=== PATIENT | male | born 1950 | race Caucasian/White ===

== ENCOUNTER 2020-03-03 09:29 | Day surgery (SDC) | payer MEDICARE, SELFPAY ==
[2020-03-03 09:35] VITALS: BP 138/88; PULSE 57; RESP 16; TEMP 36.2; O2SAT 99
[2020-03-03] MEDS: Tropicam./Phenyleph. (1/2.5%) 5 ML BTL OD ×2 (09:56→09:59)
[2020-03-03] MEDS: Tetracaine 0.5% 4 ML BTL OD (10:50)
[2020-03-03] MEDS: Balanced Salt Soln.-PLUS 500 ML BAG (10:51)
[2020-03-03] MEDS: Lidocaine 1% Pres-Free 5 ML VIAL (10:52)
[2020-03-03] MEDS: Lidocaine 2% Jelly 6 ML SYR (10:52)
[2020-03-03] MEDS: Moxifloxacin-PF 1 MG/ML VIAL (10:53)
[2020-03-03] MEDS: Povidone-Iodine Ophth 30 ML BTL (10:54)
--- NOTE | 2020-03-03 11:18 | W.PM.DSUDISC ---
Discharge Plan Disposition Patient Disposition: HOME Condition: Good Discharge Details Attending Provider: Wil Olivas Primary Care Provider: Ursula Santos Home Meds and New Rx's Prescriptions: No Action cetirizine 10 mg Tablet 10 mg PO DAILY PRNRF: 0 Discharge Instructions Stand Alone Forms: Post-op Topical Cataract, Hoda Cain (DSU) Discharge Orders Discharge Orders: Discharge Order (Routine); Ordered 03/03/20 Ordered By: Wil Olivas DS: Diagnosis Discharge Diagnosis (1) Nuclear sclerotic cataract of right eye: Status: Resolved (2) Cortical cataract of right eye: Status: Resolved
--- NOTE | 2020-03-03 11:19 | ROE_ITS ---
Date of service: 03/03/20 Time of Service: 11:19 Operative Note Operative Note DATE OF PROCEDURE: 03/03/20 PRE-OP DIAGNOSIS: Nuclear/cortical cataract, right eye Myopia POST-OP DIAGNOSIS: same PROCEDURE: Cataract extraction using phacoemulsification with intraocular lens implant, right eye SURGEON: Wil Olivas ANESTHESIA: MAC and local (sub-tenon's anesthetic infiltration) ESTIMATED BLOOD LOSS: 0 PATHOLOGY: none sent COMPLICATIONS: None Patient was transported to: same day Patient's condition: stable Implants: [employer] / [employer] Tecnis ZCB00 intraocular lens Indications: Progressive decreased vision due to cataract, right eye Procedure Description: CATARACT SURGERY OPERATIVE REPORT PREOPERATIVE DIAGNOSIS: Nuclear/cortical cataract, right eye Myopia, right eye with desire to remain myopic, -2.50 diopters target POSTOPERATIVE DIAGNOSIS: Same OPERATION: Cataract extraction using phacoemulsification with posterior chamber intraocular lens implant, right eye. IOL: IOL Sole Scraper/Model: [employer] / PACHECO Tecnis ZCB00 IOL Power: + 13.50 diopters IOL Serial Number: [id number] Optic Diameter: 6.0mm Haptic/Overall Diameter: 13.0mm PHACO INFO: Rob [employer] Vision System with OZil and Active [employer]uidics Cumulative Dispersed Energy (CDE): 15.01 seconds SURGEON: Wil Olivas MD, PETER ANESTHESIA: Monitored Anesthesia Care (MAC), with local sub-tenon's anesthetic infiltration COMPLICATIONS: None SPECIMENS: None INDICATIONS FOR PROCEDURE: The patient is a 70-year-old gentleman with history of myopia. He has developed a significant nuclear cortical cataract in only the right eye. The option of cataract surgery was offered to the patient and he wished to proceed. He desires to remain myopic in the right eye so as to avoid anisometropia. The left eye has only an early cataract. PROCEDURE: The correct surgical eye was identified and marked as the right eye and the pupil was dilated in the preoperative area using mydriatics and cycloplegics. The dilated pupil size was 8.0 mm. Oral sedation was administered in the form of an Imprimis MKO Melt (midazolam 3mg/ketamine 25mg/ondansetron 2mg). The patient was brought to the operating room where cardiopulmonary mo nitoring was instituted and surgical time-out was performed, confirming the correct operative eye and IOL power. Topical anesthesia was administered and ophthalmic povidone-iodine 5% was instilled into the conjunctival fornices. Lidocaine gel was applied to the cornea and the roselia-ocular area was prepped with Betadine 10% solution and draped in the usual sterile fashion for intraocular surgery, including an aperture drape. A Tegaderm transparent film dressing was cut in half and used to cover the lashes and lid margins. Care was taken to sequester the lashes and lid margins under the Tegaderm dressing. A lid speculum was placed between the lids of the operative eye and the [facility] operating microscope was maneuvered into position. Linn scissors were then used to make a conjunctival buttonhole approximately 6mm posterior to the limbus in the inferonasal quadrant. Blunt dissection was carried out to expose bare sclera, and a blunt-tipped sub-tenon?s anesthesia cannula was introduced and passed posteriorly along the globe where non- preserved plain lidocaine was injected into posterior sub-Tenon?s space. A sideport knife was used to make a paracentesis port inferiortemporally. Intraocular phenylephrine/lidocaine was injected into the anterior chamber. The anterior chamber was then filled with Healon Pro. A 2.4mm keratome knife was used to create a half-thickness groove at the limbus and then to construct a three-plane near-clear corneal tunnel extending 2.0mm into clear cornea in the superiortemporal position. . A flap was raised on the anterior capsule and c apsulorhexis forceps were used to complete a continuous curvilinear capsulorhexis of 5.0 mm. The anterior chamber was noted to be quite deep with a thin capsule. Balanced salt solution was then used to perform cortical cleaving hydrodissection and nuclear hydrodelineation until the lens could be freely rotated within the capsular bag. The lens nucleus was then disassembled and removed within the capsular bag and iris plane using phacoemulsification. Residual cortical material was removed using the I/A handpiece. The posterior capsule was carefully polished to remove as much residual lens epithelial cells as safely possible. The capsular bag was then inflated and the anterior chamber deepened with viscoelastic. The lens implant described above was inserted into the capsular bag using the PACHECO Deering Injector. A Kuglen hook was used to dial the IOL into position. Residual viscoelastic was then removed first from posterior to the IOL, then from the anterior chamber using the I/A handpiece. The lens implant was noted to center nicely within the capsular bag. The incisions were stromally hydrated, and the anterior chamber was reformed using BSS. Then 0.5cc of moxifloxacin 1. 0mg/ml were injected into the capsular bag and anterior chamber. The incisions were checked with a Weck spear and found to be secure. Several drops of ophthalmic povidone-iodine 5% were then applied to the eye followed by two drops of Imprimis combination prednisolone/moxifloxacin/nepafenac solution. The drapes were removed and a clear plastic protective eye shield was placed over the eye. The patient was then returned to [facility] in stable condition.
[2020-03-03 11:47] VITALS: BP 134/76; PULSE 57; RESP 18; TEMP 36.5; O2SAT 96
== END 2020-03-03 11:52 | disposition home or self-care (01) ==
PROVIDERS: PCP Nurse Practitioner Family; Visit Provider Ophthalmology
PROC: (CPT 66984; principal; 2020-03-03 12:30)
DX: H25.11 Age-related nuclear cataract, right eye (principal); K21.9 Gastro-esophageal reflux disease without esophagitis
CPT/HCPCS: 66984; V2632

== ENCOUNTER 2020-04-19 15:38 | Outpatient (CLI) | payer MEDICARE, SELFPAY ==
--- NOTE | 2020-05-09 13:40 | W.ZIOMONITOR ---
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 ?The patient was in normal sinus rhythm for the majority of the recording with an average heart rate of 63 bpm (minimum heart rate 45 bpm) ?Patient had rare PACs and rare PVCs. ?There were 2 episodes of ventricular tachycardia with the longest lasting 8 beats. ?There were 70 episodes of supraventricular tachycardia with the longest lasting 16 beats. ?There were no episodes of atrial fibrillation, no pauses greater than 3 seconds and no evidence of high degree heart block. There were no patient triggered events.
== END 2020-04-19 15:58 ==
PROVIDERS: PCP Nurse Practitioner Family
DX: R00.1 Bradycardia, unspecified (principal)
CPT/HCPCS: 0296T

== ENCOUNTER 2020-05-09 13:40 | Outpatient (CLI) | payer MEDICARE, SELFPAY | END 2020-05-09 14:00 | PROVIDERS: PCP Nurse Practitioner Family; Visit Provider Internal Medicine Cardiovascular Disease | DX: R00.2 Palpitations (principal); R00.1 Bradycardia, unspecified | CPT/HCPCS: 0298T ==

== ENCOUNTER 2020-08-09 13:26 | Outpatient (REF) | payer MEDICARE, SELFPAY ==
[2020-08-09 13:21] LABS: Calculated LDL 122 mg/dL (<100); Cholesterol 200 mg/dL (<200); Glucose 93 mg/dL (74-106); HDL Cholesterol 57 mg/dL (40-60); Triglyceride 108 mg/dL (<150)
== END 2020-08-09 13:27 | disposition home or self-care (01) ==
LOC: NCHCN 13:26
PROVIDERS: PCP Nurse Practitioner Family
DX: E78.5 Hyperlipidemia, unspecified (principal)
CPT/HCPCS: 80061; 82947

== ENCOUNTER 2020-10-10 08:15 | Outpatient (REF) | payer MEDICARE, SELFPAY ==
[2020-10-10 14:23] LABS: ALT 54 U/L (16-63); AST 22 U/L (15-37); Calculated LDL 58 mg/dL (<100); Cholesterol 123 mg/dL (<200); HDL Cholesterol 51 mg/dL (40-60); Triglyceride 72 mg/dL (<150)
== END 2020-10-10 08:16 | disposition home or self-care (01) ==
LOC: NCHCN 08:15
PROVIDERS: PCP Nurse Practitioner Family
DX: E78.5 Hyperlipidemia, unspecified (principal); I47.1 Supraventricular tachycardia; N40.0 Benign prostatic hyperplasia without lower urinary tract symptoms
CPT/HCPCS: 80061; 84450; 84460

== ENCOUNTER 2021-08-21 16:44 | Outpatient (REF) | payer MEDICARE, SELFPAY ==
[2021-08-21 21:04] LABS: ALT 36 U/L (16-63); AST 25 U/L (15-37); Albumin 4.1 g/dL (3.4-5.0); Alkaline Phosphatase 77 U/L (46-116); Anion Gap 6.3 mmol/L (3-11); BUN 14 mg/dL (7-18); Bilirubin, Total 0.5 mg/dL (0.2-1.0); CO2 30.7 mmol/L (21.0-32.0); CREATININE 0.9 mg/dL (0.70-1.30); Calcium 8.4 mg/dL (8.5-10.1); Calculated LDL 58 mg/dL (<100); Chloride 104 mmol/L (98-107); Cholesterol 120 mg/dL (<200); Glucose 69 mg/dL (74-106); HDL Cholesterol 51 mg/dL (40-60); Potassium 4.3 mmol/L (3.5-5.1); Sodium 141 mmol/L (136-145); Total Protein 7.3 g/dL (6.4-8.2); Triglyceride 55 mg/dL (<150)
[2021-08-21 21:09] LABS: HCT 48.3 % (40.0-50.0); HGB 15.8 g/dL (13.5-17.5); MCH 29.9 pg (27.0-33.0); MCHC 32.7 % (32.0-36.0); MCV 91.3 fL (80-95); MPV 10.5 fL (8.0-11.0); Platelet Count 235 10^3/uL (130-400); RBC 5.29 10^6/uL (4.36-5.78); RDW 12.7 % (11.8-14.1); RDW-SD 42.5 fL; WBC 8.89 10^3/uL (4.4-10.8)
[2021-08-22 18:25] LABS: PSA, Screening 2.2 ng/mL (0.0-6.5)
== END 2021-08-21 16:45 | disposition home or self-care (01) ==
LOC: NCHCN 16:44
PROVIDERS: PCP Nurse Practitioner Family; Visit Provider Nurse Practitioner Family
DX: E78.5 Hyperlipidemia, unspecified (principal); I47.1 Supraventricular tachycardia; Z12.5 Encounter for screening for malignant neoplasm of prostate
CPT/HCPCS: 80053; 80061; 84153; 85027

== ENCOUNTER 2022-09-05 15:06 | Outpatient (REF) | payer MEDICARE, SELFPAY ==
[2022-09-05 16:02] LABS: ALT 39 U/L (16-63); AST 25 U/L (15-37); Albumin 3.8 g/dL (3.4-5.0); Alkaline Phosphatase 73 U/L (46-116); Anion Gap 6.5 mmol/L (3-11); BUN 15 mg/dL (7-18); Bilirubin, Total 0.3 mg/dL (0.2-1.0); CO2 30.5 mmol/L (21.0-32.0); CREATININE 0.9 mg/dL (0.70-1.30); Calcium 8.8 mg/dL (8.5-10.1); Calculated LDL 53 mg/dL (<100); Chloride 106 mmol/L (98-107); Cholesterol 122 mg/dL (<200); Estimated GFR 89.62 (mL/min/1.73m2); Glucose 95 mg/dL (74-106); HDL Cholesterol 47 mg/dL (40-60); Potassium 4.3 mmol/L (3.5-5.1); Sodium 143 mmol/L (136-145); Total Protein 7.3 g/dL (6.4-8.2); Triglyceride 111 mg/dL (<150)
[2022-09-05 22:46] LABS: PSA, Screening 2.3 ng/mL (<=6.5)
== END 2022-09-05 15:07 | disposition home or self-care (01) ==
LOC: NCHCN 15:06
PROVIDERS: PCP Nurse Practitioner Family; Visit Provider Nurse Practitioner Family
DX: E78.5 Hyperlipidemia, unspecified (principal); Z12.5 Encounter for screening for malignant neoplasm of prostate; N40.0 Benign prostatic hyperplasia without lower urinary tract symptoms
CPT/HCPCS: 80053; 80061; 84153

== ENCOUNTER → 2022-12-09 08:54 | Outpatient (BNVA) | payer MEDICARE, SELFPAY | PROVIDERS: PCP Nurse Practitioner Family; Referring Provider Nurse Practitioner Family; Visit Provider Nurse Practitioner Gerontology | DX: N40.1 Benign prostatic hyperplasia with lower urinary tract symptoms (principal); R39.89 Other symptoms and signs involving the genitourinary system | CPT/HCPCS: 51798; 99214 ==

== ENCOUNTER 2023-08-22 10:24 | Outpatient (CLI) | payer MEDICARE, SELFPAY ==
[2023-08-22 10:29] LABS: Bilirubin Negative (Negative); Blood Trace-intact (Negative); Clarity Clear (Clear); Glucose Negative (Negative); Ketones Negative (Negative); Leukocyte Esterase Negative (Negative); Nitrite Negative (Negative); Specific Gravity >= 1.030 (1.005-1.025); Urobilinogen 0.2 mg/dL (Up to 0.2); pH 5.5 (5-8)
[2023-08-22 10:35] LABS: Bacteria Negative HPF (Negative); C & S Indicated? No; Casts Negative LPF (Negative); Crystals Negative HPF (Negative); Epithelial Cells Rare HPF (Negative); Mucus Trace (Negative); RBC 0-2 HPF (0-2); WBC Negative HPF (0-5)
[2023-08-22 18:09] LABS: PSA, Screening 2.5 ng/mL (<=6.5)
== END 2023-08-22 10:25 | disposition home or self-care (01) ==
LOC: LBO 10:25
PROVIDERS: PCP Nurse Practitioner Family; Visit Provider Nurse Practitioner Gerontology
DX: R36.1 Hematospermia
CPT/HCPCS: 36415; 84153; 81003; 81015

== ENCOUNTER 2023-09-12 14:40 | Outpatient (REF) | payer MEDICARE, SELFPAY ==
[2023-09-12 14:46] LABS: HCT 47.4 % (40.0-50.0); HGB 15.4 g/dL (13.5-17.5); MCH 29.4 pg (27.0-33.0); MCHC 32.5 % (32.0-36.0); MCV 91 fL (80-95); MPV 10.9 fL (8.0-11.0); Platelet Count 185 10^3/uL (130-400); RBC 5.24 10^6/uL (4.36-5.78); RDW 13.7 % (11.8-14.1); RDW-SD 45.8 fL; WBC 6.81 10^3/uL (4.4-10.8)
== END 2023-09-12 14:41 | disposition home or self-care (01) ==
LOC: NCHCN 14:40
PROVIDERS: PCP Nurse Practitioner Family; Visit Provider Nurse Practitioner Family
DX: R59.0 Localized enlarged lymph nodes (principal)
CPT/HCPCS: 85027

== ENCOUNTER → 2023-12-08 09:51 | Outpatient (BNVA) | payer MEDICARE, SELFPAY | PROVIDERS: PCP Nurse Practitioner Family; Referring Provider Nurse Practitioner Family; Visit Provider Nurse Practitioner Gerontology | DX: N40.0 Benign prostatic hyperplasia without lower urinary tract symptoms (principal) | CPT/HCPCS: 51798; 99213 ==

== ENCOUNTER 2024-09-14 13:12 | Outpatient (REF) | payer MEDICARE, SELFPAY ==
[2024-09-14 14:33] LABS: HGB 15.6 g/dL (13.5-17.5); MCH 29.3 pg (27.0-33.0); MCHC 33.2 % (32.0-36.0); MCV 88 fL (80-95); Platelet Count 202 10^3/uL (130-400); RBC 5.33 10^6/uL (4.36-5.78); RDW 13.2 % (11.8-14.1); RDW-SD 42.5 fL; WBC 7.97 10^3/uL (4.4-10.8)
[2024-09-14 15:08] LABS: ALT 36 U/L (16-63); AST 25 U/L (15-37); Alkaline Phosphatase 85 U/L (46-116); Anion Gap 6.9 mmol/L (3-11); BUN 16 mg/dL (7-18); Bilirubin, Total 0.6 mg/dL (0.2-1.0); CO2 30.1 mmol/L (21.0-32.0); Calculated LDL 58 mg/dL (<100); Chloride 105 mmol/L (98-107); Cholesterol 128 mg/dL (<200); Glucose 84 mg/dL (74-106); HDL Cholesterol 55 mg/dL (>or=40); Potassium 4.5 mmol/L (3.5-5.1); Sodium 142 mmol/L (136-145); TSH (W/Ref FT4) 1.67 uIU/mL (0.36-3.74); Total Protein 7.5 g/dL (6.4-8.2); Triglyceride 78 mg/dL (<150)
== END 2024-09-14 13:13 | disposition home or self-care (01) ==
LOC: NCHCN 13:12
PROVIDERS: PCP Nurse Practitioner Family; Visit Provider Nurse Practitioner Family
DX: E78.5 Hyperlipidemia, unspecified (principal); R53.83 Other fatigue
CPT/HCPCS: 80053; 80061; 85027; 84443

== ENCOUNTER → 2024-12-07 09:56 | Outpatient (BNVA) | payer MEDICARE, SELFPAY | PROVIDERS: PCP Nurse Practitioner Family; Visit Provider Nurse Practitioner Gerontology | DX: N40.0 Benign prostatic hyperplasia without lower urinary tract symptoms (principal) | CPT/HCPCS: 99213; 51798 ==